=== PATIENT | male | born 1980 | race Caucasian/White ===

== ENCOUNTER 2022-01-08 22:31 | Emergency (ER) | payer SELFPAY ==
[~2022-01-08] VITALS: Ht 182.9 cm; Wt 127.0 kg
[2022-01-08 22:32] VITALS: BP 164/94
== END 2022-01-09 00:17 | disposition left against medical advice (07) ==
LOC: ER 22:31
DX: Z53.21 Procedure and treatment not carried out due to patient leaving prior to being seen by health care provider (principal)
CPT/HCPCS: 93005

== ENCOUNTER 2022-05-29 17:10 | Emergency (ER) | payer SELFPAY ==
[~2022-05-29] VITALS: Ht 182.9 cm; Wt 131.0 kg
[2022-05-29 18:07] VITALS: BP 162/78
== END 2022-05-29 18:58 | disposition left against medical advice (07) ==
LOC: ER 17:18
DX: Z53.21 Procedure and treatment not carried out due to patient leaving prior to being seen by health care provider (principal)